=== PATIENT | male | born 1990 | race Caucasian/White ===

== ENCOUNTER 2021-09-09 16:14 | Emergency (ER) | payer MEDICAID, SELFPAY ==
--- NOTE | 2021-09-09 16:15 | DI.RAD_ITS ---
Exam(s) XR ANKLE RT COMPLETE EXAM: XR ANKLE RT COMPLETE CLINICAL HISTORY: latral pain after rotational injury. TECHNIQUE: 2D digital imaging was performed. Three views. COMPARISON: CR LEFT ANKLE COMPLETE from 11/25/2010 FINDINGS: BONES: No acute fracture is present. No bony destructive lesion is seen. JOINTS: The ankle mortise is normally aligned. SOFT TISSUE: Soft tissue swelling around lateral malleolus. IMPRESSION: Unremarkable radiographs of the right ankle. DATA REPOSITORY: RADIATION DOSE DELIVERED:
[2021-09-09 16:20] VITALS: BP 112/66; PULSE 77; RESP 16; TEMP 36.1; O2SAT 98
--- NOTE | 2021-09-09 16:20 | ED.GENADUL_ITS ---
Discharge Plan Disposition Patient Disposition: HOME Condition: Good Discharge Details Clinical Impression: Ankle sprain Primary Care Provider: Yosi Eid ED Provider: Joellen Aldana Home Meds and New Rx's Prescriptions: No Action No Known Home Meds Discharge Instructions Instructions: Ankle Sprain (ED) Additional Instructions: Your imaging is reassuring with no dislocation or fracture. However, I am concerned that you have high degree sprain. Please encourage rest, ice, elevation. Tylenol and/or Ibuprofen as needed for discomfort. Please continue with brace for the next 2 weeks, longer if pain persists. Once the ankle brace is off, please begin strengthening by drawing the alphabet with your toes several times a day- this will strengthen the ankle muscles. Please follow up with your primary care in 2 weeks for reevaluation. If you develop new/worsening symptoms please seek care urgently once again. Stand Alone Forms: Work Release Referrals: Yosi Eid MD [Primary Care Provider] - Medical Decision Making Patient is a pleasant 30 year old male presenting today with c/c of right ankle pain. He states that he ws coming down a ladder when he stepped on a hose and rolled his ankle internally. He did not fall, did not supper other injury. No previous fx or significant injury to this area. Denies N/T. On exam, patient appears nontoxic. Exam of RLE sigfnicant for swelling over lateral malleolus. Neurovascularly intactt. No pain in the foot No pain over proximal fibula. Patient elevating, will provide ice, APAP and NSAID. Concerned for possible fx and will obtian XR. FINDINGS: BONES: No acute fracture is present.? No bony destructive lesion is seen. JOINTS: The ankle mortise is normally aligned. SOFT TISSUE: Soft tissue swelling around lateral malleolus.? IMPRESSION: Unremarkable radiographs of the right ankle. discussed these findings with patient . Given mechanism and swelling concerned for significant sprain. We discussed supportive options. Ideally, would place in boot. However, patient unable to miss work and will not be abl to do so in the boot. Instead, will use lace up ankle brace which he will wear in his work boots. Encouraged RICE. Discussed options for pain control. encouraged f/u with PCP in 2 weeks. Return precautions given. Eddie noted given. All of his quesitons and concerns were addressed, he is in agreement with this plan. HPI General Date/Time Provider Initiated Documentation: 09/09/21 16:20 . Limitations to Documentation: no limitations . Information obtained by: patient, family and RN notes reviewed . History of Present Illness 30 year old M presents to the emergency department with the chief complaint of right ankle pain, described as severe, with intensity rated at 8. Quality is described as aching, and is localized to the right and lower extremity. Patient reports no radiation. Patient started experiencing this minute(s) and it has been constant. Immobilization improves symptom(s), Movement worsens symptoms . Patient notes no other symptoms.. Patient did receive the following treatments prior to arrival, none Related Data Home Medications Medication Instructions Recorded Confirmed Unknown [No Known Home Meds] 09/09/21 09/09/21 Allergies Allergy/AdvReac Type Severity Reaction Status Date / Time No Known Allergies Allergy Unverified 04/03/16 10:06 Review of Systems Constitutional Constitutional: Reports as per HPI and Denies headache(s) ENT Ears, Nose, Mouth, and Throat: Denies headache(s) Cardiovascular Cardiovascular: Reports as per HPI Respiratory Respiratory: Reports as per HPI and Denies cough Musculoskeletal Musculoskeletal: Reports as per HPI and Denies tingling Integumentary/Breasts Skin/Breast: Reports as per HPI, Denies rash and Denies wounds Neurologic Neurologic: Reports as per HPI, Denies headache(s), Denies tingling and Denies paresthesias PFSH All Active Problems (Updated 09/09/21 @ 17:16 by MARLON Ruiz) Ankle sprain (Acute) Social History Smoking/Tobacco Use Status: Current-Occasional Tobacco Type: e-cigarettes Smoking risk assessment performed?: Yes Alcohol Intake: never Drug use: Never Do you feel safe in your relationship?: Yes Exam Const General: cooperative, healthy appearing, uncomfortable, no acute distress, well developed and well groomed Nutritional Appearance: average body habitus and well nourished Orientation: alert and awake Resp Effort & Inspection: normal respiratory effort, able to speak in complete sentences and no respiratory distress Cardio Rate: regular rate Rhythm: regular rhythm Skin General skin exam: no rashes or lesions noted Lesions: no lesions Rashes: no rashes Trauma: no lacerations or abrasions Neuro General: patient alert and patient awake Cognition: normal cognition Speech: speech normal Motor: muscle tone normal throughout Sensory Exam: no sensory deficits noted Extrem Ankle/foot/toe images: 1. Area of discomfort and swelling. 2+ distal pulses, sensation intact. No pain over 5th metatarsal or elsewhere about the foot. Pain medially inferiot to the malleolus. Achilles intact and nontender. Lateral pain/swelling maximal over malleolus. No pain over proximal fibula. Psych Appearance: grossly normal and well kempt Mental Status: mental status grossly normal Speech and Movement: speech and movement normal
[2021-09-09] MEDS: Ibuprofen 600 MG TAB PO (16:55)
[2021-09-09] MEDS: Acetaminophen 500 MG TAB 1000 MG PO (16:55)
== END 2021-09-09 17:31 | disposition home or self-care (01) ==
PROVIDERS: Emergency Provider Physician Assistant; PCP Internal Medicine
DX: S93.491A Sprain of other ligament of right ankle, initial encounter (principal); X50.1XXA Overexertion from prolonged static or awkward postures, initial encounter
CPT/HCPCS: 99283; 73610